=== PATIENT | female | born 1995 | race African-American/Black ===

== ENCOUNTER 2018-05-04 08:51 | Emergency (ER) | payer OTHER ==
[2018-05-04] MEDS ORDERED: SODIUM CHLORIDE 0.9% 1,000 ML IV STA (09:19)
--- NOTE | 2018-05-04 09:23 | ED ---
General Adult HPI - General Chief complaint: Abdominal Pain Stated complaint: Ear pain/side pain Time Seen by Provider: 05/04/18 09:04 Source: patient, RN notes reviewed Mode of arrival: ambulatory Limitations: no limitations - History of Present Illness Initial comments: Patient 22-year-old female presented to the emergency room today with multiple complaints. She admits that this morning she noticed some left ear pain. She also admits that when she was working out skin having some pain in the right side of the abdomen. She states it is sharp pain that she had to stop working out. Patient states felt fine yesterday. She does not that she's had diarrhea off and on over the last week. Patient denies any other complaints or symptoms. Patient denies any recent fever, chills, shortness of breath, chest pain, back pain, abdominal pain, nausea or vomiting, numbness or tingling, dysuria or hematuria, constipation, headaches or visual changes, or any other complaints. - Related Data Previous Rx's Medication Instructions Recorded Amoxicillin 500 mg PO Q8H 10 Days day 05/04/18 Allergies Allergy/AdvReac Type Severity Reaction Status Date / Time No Known Allergies Allergy Verified 05/04/18 10:03 Review of Systems ROS Statement: Those systems with pertinent positive or pertinent negative responses have been documented in the HPI. ROS Other: All systems not noted in ROS Statement are negative. Past Medical History Past Medical History: No Reported History History of Any Multi-Drug Resistant Organisms: None Reported Past Surgical History: Section Past Psychological History: No Psychological Hx Reported Smoking Status: Never smoker Past Alcohol Use History: Occasional Past Drug Use History: None Reported General Exam - General Exam Comments Initial Comments: General: The patient is awake and alert, in no distress, and does not appear acutely ill. Eye: Pupils are equal, round and reactive to light, extra-ocular movements are intact. No nystagmus. There is normal conjunctiva bilaterally. No signs of icterus. Ears, nose, mouth and throat: There are moist mucous membranes and no oral lesions. Right ear clear. Left ear cerumen impaction. Neck: The neck is supple, there is no tenderness or JVD. Cardiovascular: There is a regular rate and rhythm. No murmur, rub or gallop is appreciated. Respiratory: Lungs are clear to auscultation, respirations are non-labored, breath sounds are equal. No wheezes, stridor, rales, or rhonchi. Gastrointestinal: Abdomen soft on palpation. Patient does have mild tenderness on exam left lower quadrant. No rebound tenderness. No guarding. No CVA tenderness. Musculoskeletal: Normal ROM, no tenderness. Strength 5/5. Sensation intact. Pulses equal bilaterally 2+. Neurological: A&O x 3. CN II-XII intact, There are no obvious motor or sensory deficits. Coordination appears grossly intact. Speech is normal. Skin: Skin is warm and dry and no rashes or lesions are noted. Psychiatric: Cooperative, appropriate mood & affect, normal judgment. Limitations: no limitations Course Vital Signs 05/04/18 08:54 Temperature 98.4 F Pulse Rate 80 Respiratory 18 Rate Blood Pressure 118/82 O2 Sat by Pulse 98 Oximetry Medical Decision Making - Lab Data Result diagrams: 05/04/18 09:40 05/04/18 09:40 Lab Results 05/04/18 05/04/18 05/04/18 Range/Units 09:29 09:29 09:40 WBC (3.8-10.6) k/uL RBC (3.80-5.40) m/uL Hgb (11.4-16.0) gm/dL Hct (34.0-46.0) % MCV (80.0-100.0) fL MCH (25.0-35.0) pg MCHC (31.0-37.0) g/dL RDW (11.5-15.5) % Plt Count (150-450) k/uL Neutrophils % % Lymphocytes % % Monocytes % % Eosinophils % % Basophils % % Neutrophils # (1.3-7.7) k/uL Lymphocytes # (1.0-4.8) k/uL Monocytes # (0-1.0) k/uL Eosinophils # (0-0.7) k/uL Basophils # (0-0.2) k/uL Sodium 141 (137-145) mmol/L Potassium 4.2 (3.5-5.1) mmol/L Chloride 103 (98-107) mmol/L Carbon Dioxide 28 (22-30) mmol/L Anion Gap 10 mmol/L BUN 16 (7-17) mg/dL Creatinine 0.70 (0.52-1.04) mg/dL Est GFR (CKD-EPI)AfAm >90 (>60 ml/min/1.73 sqM) Est GFR (CKD-EPI)NonAf >90 (>60 ml/min/1.73 sqM) Glucose 93 (74-99) mg/dL Calcium 9.0 (8.4-10.2) mg/dL Total Bilirubin 0.5 (0.2-1.3) mg/dL AST 17 (14-36) U/L ALT 28 (9-52) U/L Alkaline Phosphatase 34 L (38-126) U/L Total Protein 6.3 (6.3-8.2) g/dL Albumin 4.0 (3.5-5.0) g/dL Amylase 52 (30-110) U/L Lipase 52 (23-300) U/L Urine Color Yellow Urine Appearance Clear (Clear) Urine pH 6.0 (5.0-8.0) Ur Specific [place] 1.024 (1.001-1.035) Urine Protein Trace H (Negative) Urine Glucose (UA) Negative (Negative) Urine Ketones Negative (Negative) Urine Blood Negative (Negative) Urine Nitrite Negative (Negative) Urine Bilirubin Negative (Negative) Urine Urobilinogen <2.0 (<2.0) mg/dL Ur Leukocyte Esterase Moderate H (Negative) Urine RBC 2 (0-5) /hpf Urine WBC 5 (0-5) /hpf Ur Squamous Epith Cells 2 (0-4) /hpf Urine Bacteria Occasional H (None) /hpf Urine Mucus Many H (None) /hpf Urine HCG, Qual Not Detected (Not Detectd) 05/04/18 Range/Units 09:40 WBC 5.8 (3.8-10.6) k/uL RBC 4.41 (3.80-5.40) m/uL Hgb 12.9 (11.4-16.0) gm/dL Hct 39.6 (34.0-46.0) % MCV 89.8 (80.0-100.0) fL MCH 29.2 (25.0-35.0) pg MCHC 32.5 (31.0-37.0) g/dL RDW 12.6 (11.5-15.5) % Plt Count 191 (150-450) k/uL Neutrophils % 61 % Lymphocytes % 33 % Monocytes % 3 % Eosinophils % 1 % Basophils % 0 % Neutrophils # 3.5 (1.3-7.7) k/uL Lymphocytes # 1.9 (1.0-4.8) k/uL Monocytes # 0.2 (0-1.0) k/uL Eosinophils # 0.0 (0-0.7) k/uL Basophils # 0.0 (0-0.2) k/uL Sodium (137-145) mmol/L Potassium (3.5-5.1) mmol/L Chloride (98-107) mmol/L Carbon Dioxide (22-30) mmol/L Anion Gap mmol/L BUN (7-17) mg/dL Creatinine (0.52-1.04) mg/dL Est GFR (CKD-EPI)AfAm (>60 ml/min/1.73 sqM) Est GFR (CKD-EPI)NonAf (>60 ml/min/1.73 sqM) Glucose (74-99) mg/dL Calcium (8.4-10.2) mg/dL Total Bilirubin (0.2-1.3) mg/dL AST (14-36) U/L ALT (9-52) U/L Alkaline Phosphatase (38-126) U/L Total Protein (6.3-8.2) g/dL Albumin (3.5-5.0) g/dL Amylase (30-110) U/L Lipase (23-300) U/L Urine Color Urine Appearance (Clear) Urine pH (5.0-8.0) Ur Specific [place] (1.001-1.035) Urine Protein (Negative) Urine Glucose (UA) (Negative) Urine Ketones (Negative) Urine Blood (Negative) Urine Nitrite (Negative) Urine Bilirubin (Negative) Urine Urobilinogen (<2.0) mg/dL Ur Leukocyte Esterase (Negative) Urine RBC (0-5) /hpf Urine WBC (0-5) /hpf Ur Squamous Epith Cells (0-4) /hpf Urine Bacteria (None) /hpf Urine Mucus (None) /hpf Urine HCG, Qual (Not Detectd) Disposition Clinical Impression: Otitis media, Abdominal pain Disposition: HOME SELF-CARE Condition: Good Instructions: Abdominal Pain (ED) Additional Instructions: Please use medication as discussed. Please follow-up with family doctor in the next 2 days of symptoms have not improved. Please return to emergency room if the symptoms increase or worsen or for any other concerns. Prescriptions: Amoxicillin 500 mg PO Q8H 10 Days day Is patient prescribed a controlled substance at d/c from ED?: No Referrals: None,Stated [Primary Care Provider] - 1-2 days Time of Disposition: 11:05
[2018-05-04 09:43] LABS: Appearance,Urine Clear (Clear); Bacteria,Urine Occasional /hpf; Bilirubin,Urine Negative (Negative); Blood,Urine Negative (Negative); Color,Urine Yellow; Glucose,Urine (UA) Negative (Negative); Ketones,Urine Negative (Negative); Leukocyte Esterase,Urine Moderate (Negative); Mucus,Urine Many /hpf; Nitrite,Urine Negative (Negative); Protein,Urine Trace (Negative); RBC,Urine 2 /hpf (0-5); Specific Gravity,Urine 1.024 (1.001-1.035); Squamous Epithelial Cell,Urine 2 /hpf (0-4); Urobilinogen,Urine <2.0 mg/dL (<2.0); WBC,Urine 5 /hpf (0-5)
[2018-05-04 09:51] LABS: Basophils % (A) 0 %; Eosinophils % (A) 1 %; HCT 39.6 % (34.0-46.0); HGB 12.9 gm/dL (11.4-16.0); Lymphocytes # (A) 1.9 k/uL (1.0-4.8); Lymphocytes % (A) 33 %; MCH 29.2 pg (25.0-35.0); MCHC 32.5 g/dL (31.0-37.0); MCV 89.8 fL (80.0-100.0); Mean Platelet Volume 6.4; Monocytes # (A) 0.2 k/uL (0-1.0); Monocytes % (A) 3 %; Neutrophils # (A) 3.5 k/uL (1.3-7.7); Neutrophils % (A) 61 %; Platelet Count 191 k/uL (150-450); RBC 4.41 m/uL (3.80-5.40); RDW 12.6 % (11.5-15.5); WBC 5.8 k/uL (3.8-10.6)
[2018-05-04 10:04] LABS: ALT 28 U/L (9-52); AST 17 U/L (14-36); Alkaline Phosphatase 34 U/L (38-126); Amylase 52 U/L (30-110); Anion Gap 10 mmol/L; Blood Urea Nitrogen 16 mg/dL (7-17); Carbon Dioxide 28 mmol/L (22-30); Chloride 103 mmol/L (98-107); Glucose 93 mg/dL (74-99); Lipase 52 U/L (23-300); Potassium 4.2 mmol/L (3.5-5.1); Sodium 141 mmol/L (137-145); Total Bilirubin 0.5 mg/dL (0.2-1.3); Total Protein 6.3 g/dL (6.3-8.2)
--- NOTE | 2018-05-04 10:27 | XR ---
EXAMINATION TYPE: XR KUB DATE OF EXAM: 05/04/2018 COMPARISON: NONE INDICATION: Pain TECHNIQUE: Single view abdomen upright view FINDINGS: Nonspecific gas is present. Psoas margins are normal. No organomegaly is present. Navel piercing is in the midline. IMPRESSION: 1. Unremarkable Abdomen
[2018-05-04 11:20] VITALS: BP 111/59; PULSE 60; RESP 16; TEMP 97.6
== END 2018-05-04 11:19 | disposition home or self-care (01) ==
LOC: EC 08:51
DX: H66.92 Otitis media, unspecified, left ear (principal); R10.9 Unspecified abdominal pain; H61.22 Impacted cerumen, left ear
CPT/HCPCS: 36415; 74018; 80053; 81001; 81025; 82150; 83690; 85025; 96360; 99284

== ENCOUNTER 2018-05-07 13:50 | Emergency (ER) | payer OTHER ==
[2018-05-07 13:56] VITALS: RESP 18
--- NOTE | 2018-05-07 15:30 | ED ---
General Adult HPI - General Chief complaint: ENT Stated complaint: ear pain-revisit Time Seen by Provider: 05/07/18 14:17 Source: patient, RN notes reviewed Mode of arrival: ambulatory Limitations: no limitations - History of Present Illness Initial comments: 22-year-old female process to the emergency department for a chief complaint of left ureter pain 5 days. Patient was seen here 4 days ago and treated with amoxicillin. Patient states that the amoxicillin is not helping. Patient has not taken anything for pain. Patient denies neck stiffness, cough, congestion. Patient has no other complaints at this time including shortness of breath, chest pain, abdominal pain, nausea or vomiting, headache, or visual changes. - Related Data Previous Rx's Medication Instructions Recorded Amoxicillin 500 mg PO Q8H 10 Days day 05/04/18 Amoxicillin/Potassium Clav 1 tab PO Q12HR #20 tab 05/07/18 [Augmentin 875-125 Tablet] Allergies Allergy/AdvReac Type Severity Reaction Status Date / Time No Known Allergies Allergy Verified 05/07/18 14:21 Review of Systems ROS Statement: Those systems with pertinent positive or pertinent negative responses have been documented in the HPI. ROS Other: All systems not noted in ROS Statement are negative. Past Medical History Past Medical History: No Reported History History of Any Multi-Drug Resistant Organisms: None Reported Past Surgical History: Section Past Psychological History: No Psychological Hx Reported Smoking Status: Never smoker Past Alcohol Use History: Occasional Past Drug Use History: None Reported General Exam Limitations: no limitations General appearance: alert, in no apparent distress Head exam: Present: atraumatic, normocephalic, normal inspection Eye exam: Present: normal appearance ENT exam: Present: normal oropharynx, mucous membranes moist, normal external ear exam (No pain in the tragus or pinna. No pain in the mastoid process.). Absent: TM's normal bilaterally (Left tympanic membrane appears erythematous) Neck exam: Present: normal inspection, full ROM. Absent: tenderness, meningismus, lymphadenopathy Respiratory exam: Present: normal lung sounds bilaterally. Absent: respiratory distress, wheezes, rales, rhonchi, stridor Cardiovascular Exam: Present: regular rate, normal rhythm, normal heart sounds. Absent: systolic murmur, diastolic murmur, rubs, gallop, clicks Course Vital Signs 05/07/18 13:54 Temperature 97.9 F Pulse Rate 88 Respiratory 18 Rate Blood Pressure 133/87 O2 Sat by Pulse 99 Oximetry Medical Decision Making - Medical Decision Making 22-year-old female presents to the emergency department for a chief complaint of left ear pain 5 days. Patient was treated here with amoxicillin 4 days ago but is still having pain despite taking the amoxicillin. Patient has not tried anything else for pain. Patient is afebrile in the emergency department. On exam patient does have an erythematous left tympanic membrane. Lungs are clear. Patient does not appear congested. Throat is nonerythematous. Patient will stop the amoxicillin and be treated with Augmentin instead. She will monitor for any worsening symptoms including fever or increased pain and return if these occur. She will follow up with primary care in 1-2 days. She can also take Motrin and Tylenol for pain as discussed. Disposition Clinical Impression: Otitis media Disposition: HOME SELF-CARE Condition: Good Instructions: Otitis Media (ED) Additional Instructions: Please take Augmentin as directed. Stop taking Amoxicillin. Please monitor for any worsening symptoms or fever and return if these occur. Follow-up with primary care in 1-2 days. Prescriptions: Amoxicillin/Potassium Clav [Augmentin 875-125 Tablet] 1 tab PO Q12HR #20 tab Is patient prescribed a controlled substance at d/c from ED?: No Referrals: Nixon Buck MD [STAFF PHYSICIAN] - 1-2 days Time of Disposition: 15:30
[2018-05-07 15:35] VITALS: BP 118/67; PULSE 72; TEMP 98.2
== END 2018-05-07 15:39 | disposition home or self-care (01) ==
LOC: EC 13:50
DX: H66.92 Otitis media, unspecified, left ear (principal)
CPT/HCPCS: 99282

== ENCOUNTER 2018-11-21 07:56 | Emergency (ER) | payer OTHER ==
[2018-11-21] MEDS ORDERED: ONDANSETRON 4 MG/2 ML VIAL IVP STA (09:12)
[2018-11-21] MEDS ORDERED: SODIUM CHLORIDE 0.9% 1,000 ML IV STA (09:12)
[2018-11-21] MEDS ORDERED: KETOROLAC 30 MG/ML 1 ML VIAL IVP STA (09:12)
--- NOTE | 2018-11-21 09:14 | ED ---
Abdominal Pain HPI - General Chief Complaint: Abdominal Pain Stated Complaint: Abd.pain Time Seen by Provider: 11/21/18 09:04 Source: patient, RN notes reviewed, old records reviewed Mode of arrival: ambulatory Limitations: no limitations - History of Present Illness Initial Comments: Patient is a 23-year-old female who presents emergency department today with chief complaint of nausea, side abdominal pain. Patient reports her symptoms started 3 hours ago. She reports that the symptoms woke her up from her sleep. Patient states she was going to work but the pain is more intense and severe so she felt she had to be seen. She denies any changes in urination or bowel habits. She has had no vomiting episodes. She states that she had a bowel movement yesterday, does not feel like she needs to have a bowel movement at this time. Patient states that she has had a before. She denies chance of at this time. Patient states that she has no vaginal bleeding or discharge.Patient denies any recent fever, chills, shortness of breath, chest pain, back pain, vomiting, numbness or tingling, dysuria or hematuria, constipation or diarrhea, headaches or visual changes, or any other current symptoms - Related Data Previous Rx's Medication Instructions Recorded Famotidine [Pepcid] 20 mg PO BID #20 tablet 11/21/18 Nitrofurantoin Monohyd/M-Cryst 100 mg PO Q12HR #14 cap 11/21/18 [Macrobid] Ondansetron Odt [Zofran Odt] 4 mg PO Q8HR PRN #12 tab 11/21/18 Allergies Allergy/AdvReac Type Severity Reaction Status Date / Time No Known Allergies Allergy Verified 11/21/18 09:37 Review of Systems ROS Statement: Those systems with pertinent positive or pertinent negative responses have been documented in the HPI. ROS Other: All systems not noted in ROS Statement are negative. Past Medical History Past Medical History: No Reported History History of Any Multi-Drug Resistant Organisms: None Reported Past Surgical History: Section Past Psychological History: No Psychological Hx Reported Smoking Status: Never smoker Past Alcohol Use History: Occasional Past Drug Use History: None Reported General Exam - General Exam Comments Initial Comments: 23-year-old female. Alert and oriented. No distress. Limitations: no limitations General appearance: alert, in no apparent distress Head exam: Present: atraumatic, normocephalic, normal inspection Eye exam: Present: normal appearance, PERRL, EOMI. Absent: scleral icterus, conjunctival injection, periorbital swelling ENT exam: Present: normal exam, mucous membranes moist Neck exam: Present: normal inspection. Absent: tenderness, meningismus, lymphadenopathy Respiratory exam: Present: normal lung sounds bilaterally. Absent: respiratory distress, wheezes, rales, rhonchi, stridor Cardiovascular Exam: Present: regular rate, normal rhythm, normal heart sounds. Absent: systolic murmur, diastolic murmur, rubs, gallop, clicks GI/Abdominal exam: Present: soft, normal bowel sounds. Absent: distended, tenderness, guarding, rebound, rigid Extremities exam: Present: normal inspection, full ROM, normal capillary refill. Absent: tenderness, pedal edema, joint swelling, calf tenderness Back exam: Present: normal inspection Neurological exam: Present: alert, oriented X3, CN II-XII intact Psychiatric exam: Present: normal affect, normal mood Skin exam: Present: warm, dry, intact, normal color. Absent: rash Course Vital Signs 11/21/18 08:00 Temperature 98.0 F Pulse Rate 84 Respiratory 20 Rate Blood Pressure 121/71 O2 Sat by Pulse 100 Oximetry - Reevaluation(s) Reevaluation #1: 11/21/18 11:52 Patient is feeling better at this time with GI cocktail and fluids. Informed of lab results and UTI. Medical Decision Making - Medical Decision Making Patient is 23-year-old female presents raise worsens acutely left-sided abdominal pain. Patient has had no fevers or chills Patient denies any other significant complaints. Patient started on IV fluids and lab work obtained. Patient's are reviewed and negative for any acute process. Urinalysis does show signs of infection with 42 with blood cells. Urine culture obtained. We' ll put the Patient on antibiotics to cover for UTI. HCG levels negative. KUB shows nonspecific bowel gas pattern. Stools throughout. Patient has had no vomiting. I discussed Patient likely suffered from some mild enteritis and gastritis for the left-sided jaw pain as well as the UTI. We'll put the Patient on Pepcid and Zofran and Macrobid. Advised to follow-up with PCP. All questions answered. - Lab Data Result diagrams: 11/21/18 10:30 11/21/18 10:30 Lab Results 11/21/18 11/21/18 11/21/18 Range/Units 10:30 10:30 11:10 WBC 5.3 (3.8-10.6) k/uL RBC 4.33 (3.80-5.40) m/uL Hgb 12.4 (11.4-16.0) gm/dL Hct 38.1 (34.0-46.0) % MCV 87.9 (80.0-100.0) fL MCH 28.7 (25.0-35.0) pg MCHC 32.6 (31.0-37.0) g/dL RDW 12.7 (11.5-15.5) % Plt Count 210 (150-450) k/uL Neutrophils % 62 % Lymphocytes % 30 % Monocytes % 4 % Eosinophils % 1 % Basophils % 0 % Neutrophils # 3.3 (1.3-7.7) k/uL Lymphocytes # 1.6 (1.0-4.8) k/uL Monocytes # 0.2 (0-1.0) k/uL Eosinophils # 0.1 (0-0.7) k/uL Basophils # 0.0 (0-0.2) k/uL Sodium 139 (137-145) mmol/L Potassium 4.6 (3.5-5.1) mmol/L Chloride 106 (98-107) mmol/L Carbon Dioxide 25 (22-30) mmol/L Anion Gap 8 mmol/L BUN 15 (7-17) mg/dL Creatinine 0.68 (0.52-1.04) mg/dL Est GFR (CKD-EPI)AfAm >90 (>60 ml/min/1.73 sqM) Est GFR (CKD-EPI)NonAf >90 (>60 ml/min/1.73 sqM) Glucose 93 (74-99) mg/dL Calcium 9.3 (8.4-10.2) mg/dL Total Bilirubin 0.4 (0.2-1.3) mg/dL AST 16 (14-36) U/L ALT 14 (9-52) U/L Alkaline Phosphatase 39 (38-126) U/L Total Protein 6.9 (6.3-8.2) g/dL Albumin 4.0 (3.5-5.0) g/dL Amylase 52 (30-110) U/L Lipase 57 (23-300) U/L Urine Color Urine Appearance (Clear) Urine pH (5.0-8.0) Ur Specific [place] (1.001-1.035) Urine Protein (Negative) Urine Glucose (UA) (Negative) Urine Ketones (Negative) Urine Blood (Negative) Urine Nitrite (Negative) Urine Bilirubin (Negative) Urine Urobilinogen (<2.0) mg/dL Ur Leukocyte Esterase (Negative) Urine RBC (0-5) /hpf Urine WBC (0-5) /hpf Ur Squamous Epith Cells (0-4) /hpf Urine Bacteria (None) /hpf Urine Mucus (None) /hpf Urine HCG, Qual Not Detected (Not Detectd) 11/21/18 Range/Units 11:10 WBC (3.8-10.6) k/uL RBC (3.80-5.40) m/uL Hgb (11.4-16.0) gm/dL Hct (34.0-46.0) % MCV (80.0-100.0) fL MCH (25.0-35.0) pg MCHC (31.0-37.0) g/dL RDW (11.5-15.5) % Plt Count (150-450) k/uL Neutrophils % % Lymphocytes % % Monocytes % % Eosinophils % % Basophils % % Neutrophils # (1.3-7.7) k/uL Lymphocytes # (1.0-4.8) k/uL Monocytes # (0-1.0) k/uL Eosinophils # (0-0.7) k/uL Basophils # (0-0.2) k/uL Sodium (137-145) mmol/L Potassium (3.5-5.1) mmol/L Chloride (98-107) mmol/L Carbon Dioxide (22-30) mmol/L Anion Gap mmol/L BUN (7-17) mg/dL Creatinine (0.52-1.04) mg/dL Est GFR (CKD-EPI)AfAm (>60 ml/min/1.73 sqM) Est GFR (CKD-EPI)NonAf (>60 ml/min/1.73 sqM) Glucose (74-99) mg/dL Calcium (8.4-10.2) mg/dL Total Bilirubin (0.2-1.3) mg/dL AST (14-36) U/L ALT (9-52) U/L Alkaline Phosphatase (38-126) U/L Total Protein (6.3-8.2) g/dL Albumin (3.5-5.0) g/dL Amylase (30-110) U/L Lipase (23-300) U/L Urine Color Yellow Urine Appearance Clear (Clear) Urine pH 6.5 (5.0-8.0) Ur Specific [place] 1.018 (1.001-1.035) Urine Protein Negative (Negative) Urine Glucose (UA) Negative (Negative) Urine Ketones Negative (Negative) Urine Blood Negative (Negative) Urine Nitrite Negative (Negative) Urine Bilirubin Negative (Negative) Urine Urobilinogen <2.0 (<2.0) mg/dL Ur Leukocyte Esterase Moderate H (Negative) Urine RBC <1 (0-5) /hpf Urine WBC 42 H (0-5) /hpf Ur Squamous Epith Cells 5 H (0-4) /hpf Urine Bacteria Few H (None) /hpf Urine Mucus Few H (None) /hpf Urine HCG, Qual (Not Detectd) Disposition Clinical Impression: UTI (urinary tract infection), Gastritis Disposition: HOME SELF-CARE Condition: Good Instructions: Urinary Tract Infection in Women (DC) Additional Instructions: Patient advised to rest, take medication as prescribed. Follow-up with primary care physician. Return to emergency department if any alarming signs or symptoms occur. Prescriptions: Famotidine [Pepcid] 20 mg PO BID #20 tablet Nitrofurantoin Monohyd/M-Cryst [Macrobid] 100 mg PO Q12HR #14 cap Ondansetron Odt [Zofran Odt] 4 mg PO Q8HR PRN #12 tab PRN Reason: Nausea Is patient prescribed a controlled substance at d/c from ED?: No Referrals: None,Stated [Primary Care Provider] - 1-2 days Time of Disposition: 11:54
[2018-11-21] MEDS ORDERED: PANTOPRAZOLE 40 MG/10 ML VIAL IVP STA (09:46)
[2018-11-21] MEDS ORDERED: MAG HYDROX/AL HYDROX/SIMETH 30 ML, HYOSCYAMINE ELIXIR 10 ML, CIMETIDINE HCL 300 MG, LID... PO STA ×4 (09:46)
[2018-11-21 11:08] LABS: Basophils % (A) 0 %; Eosinophils # (A) 0.1 k/uL (0-0.7); Eosinophils % (A) 1 %; HCT 38.1 % (34.0-46.0); HGB 12.4 gm/dL (11.4-16.0); Lymphocytes # (A) 1.6 k/uL (1.0-4.8); Lymphocytes % (A) 30 %; MCH 28.7 pg (25.0-35.0); MCHC 32.6 g/dL (31.0-37.0); MCV 87.9 fL (80.0-100.0); Mean Platelet Volume 6.5; Monocytes # (A) 0.2 k/uL (0-1.0); Monocytes % (A) 4 %; Neutrophils # (A) 3.3 k/uL (1.3-7.7); Neutrophils % (A) 62 %; Platelet Count 210 k/uL (150-450); RBC 4.33 m/uL (3.80-5.40); RDW 12.7 % (11.5-15.5); WBC 5.3 k/uL (3.8-10.6)
[2018-11-21 11:09] LABS: ALT 14 U/L (9-52); AST 16 U/L (14-36); Alkaline Phosphatase 39 U/L (38-126); Amylase 52 U/L (30-110); Anion Gap 8 mmol/L; Blood Urea Nitrogen 15 mg/dL (7-17); Calcium 9.3 mg/dL (8.4-10.2); Carbon Dioxide 25 mmol/L (22-30); Chloride 106 mmol/L (98-107); Glucose 93 mg/dL (74-99); Lipase 57 U/L (23-300); Potassium 4.6 mmol/L (3.5-5.1); Sodium 139 mmol/L (137-145); Total Bilirubin 0.4 mg/dL (0.2-1.3); Total Protein 6.9 g/dL (6.3-8.2)
[2018-11-21 11:21] LABS: Appearance,Urine Clear (Clear); Bacteria,Urine Few /hpf; Bilirubin,Urine Negative (Negative); Blood,Urine Negative (Negative); Color,Urine Yellow; Glucose,Urine (UA) Negative (Negative); Ketones,Urine Negative (Negative); Leukocyte Esterase,Urine Moderate (Negative); Mucus,Urine Few /hpf; Nitrite,Urine Negative (Negative); PH, Urine 6.5 (5.0-8.0); Protein,Urine Negative (Negative); RBC,Urine <1 /hpf (0-5); Specific Gravity,Urine 1.018 (1.001-1.035); Squamous Epithelial Cell,Urine 5 /hpf (0-4); Urobilinogen,Urine <2.0 mg/dL (<2.0); WBC,Urine 42 /hpf (0-5)
[2018-11-21 12:09] VITALS: BP 102/56; PULSE 65; RESP 18; TEMP 98.3
--- NOTE | 2018-11-21 12:10 | XR ---
EXAMINATION TYPE: XR KUB DATE OF EXAM: 11/21/2018 COMPARISON: 05/04/2018 INDICATION: Abdomen pain TECHNIQUE: Single view abdomen upright view FINDINGS: There is a normal bowel gas pattern. No suspicious air-fluid levels or differential air-fluid levels are present. There is nonspecific small bowel gas present. Psoas margins are normal. No organomegaly is present. IMPRESSION: 1. Nonspecific abdomen
== END 2018-11-21 12:10 | disposition home or self-care (01) ==
LOC: SUPCPDRO 07:56 → EC 07:56
DX: K29.70 Gastritis, unspecified, without bleeding (principal); N39.0 Urinary tract infection, site not specified
CPT/HCPCS: 99284; 96374; 96375 ×2; 96361 ×2; 36415; 80053; 82150; 83690; 85025; 81001; 81025; 87086; 74018; J2405; J1885; C9113

== ENCOUNTER 2019-04-22 18:53 | Emergency (ER) | payer OTHER ==
[2019-04-22 19:55] VITALS: BP 127/70; PULSE 69; RESP 20; TEMP 99.4
[2019-04-22 22:08] LABS: Appearance,Urine Clear (Clear); Bilirubin,Urine Negative (Negative); Blood,Urine Negative (Negative); Color,Urine Yellow; Glucose,Urine (UA) Negative (Negative); Ketones,Urine Negative (Negative); Leukocyte Esterase,Urine Moderate (Negative); Mucus,Urine Many /hpf; Nitrite,Urine Negative (Negative); Protein,Urine Negative (Negative); RBC,Urine 1 /hpf (0-5); Specific Gravity,Urine 1.028 (1.001-1.035); Squamous Epithelial Cell,Urine 6 /hpf (0-4); WBC,Urine 6 /hpf (0-5)
[2019-04-22] MEDS ORDERED: KETOROLAC 30 MG/ML 1 ML VIAL IM STA (22:21)
--- NOTE | 2019-04-22 22:22 | ED ---
General Adult HPI - General Chief complaint: Abdominal Pain Stated complaint: chest & abdominal pain Time Seen by Provider: 04/22/19 20:53 Source: patient Mode of arrival: ambulatory Limitations: no limitations - History of Present Illness Initial comments: 23-year-old female patient presents to emergency department today for evaluation of bilateral breast pain and tenderness. Patient states she's also been having some intermittent lower abdominal pain and discomfort. Patient states this started several days ago but she finally had time today to come get checked out. Patient denies any redness, swelling, or drainage from the nipples. Patient is unsure she may be . Patient states that she has been having an intermittent vague pain to the suprapubic region. Denies any radiation of the pain through to her back when the pain is present. She denies any pain at this time. She denies any abnormal vaginal bleeding or discharge. Denies any concern for sexually transmitted infections. Denies any hematuria, dysuria, urinary frequency, urinary urgency. She denies fever or chills. Patient denies any recent rash, shortness breath, chest pain, nausea, vomiting, diarrhea, constipation, back pain, numbness, tingling, dizziness, weakness, headache, visual changes, or any other complaints. - Related Data Previous Rx's Medication Instructions Recorded Ibuprofen [Motrin] 600 mg PO Q8HR PRN #30 tab 04/22/19 Allergies Allergy/AdvReac Type Severity Reaction Status Date / Time No Known Allergies Allergy Verified 04/22/19 21:07 Review of Systems ROS Statement: Those systems with pertinent positive or pertinent negative responses have been documented in the HPI. ROS Other: All systems not noted in ROS Statement are negative. Past Medical History Past Medical History: No Reported History History of Any Multi-Drug Resistant Organisms: None Reported Past Surgical History: Section Past Psychological History: No Psychological Hx Reported Smoking Status: Never smoker Past Alcohol Use History: None Reported Past Drug Use History: None Reported General Exam Limitations: no limitations General appearance: alert, in no apparent distress, other (Physical well- developed, well-nourished adult female patient in no acute distress. Vital signs upon presentation are temperature 99.4F, pulse 69, respirations 20, blood pressure 127/70, pulse ox 98% on room air.) Eye exam: Present: normal appearance, PERRL, EOMI. Absent: scleral icterus, conjunctival injection, periorbital swelling ENT exam: Present: normal exam, normal oropharynx, mucous membranes moist Respiratory exam: Present: normal lung sounds bilaterally. Absent: respiratory distress, wheezes, rales, rhonchi, stridor Cardiovascular Exam: Present: regular rate, normal rhythm, normal heart sounds. Absent: systolic murmur, diastolic murmur, rubs, gallop, clicks GI/Abdominal exam: Present: soft, normal bowel sounds. Absent: distended, tenderness, guarding, rebound, rigid Back exam: Present: normal inspection. Absent: CVA tenderness (R), CVA tenderness (L) Neurological exam: Present: alert, oriented X3, CN II-XII intact Psychiatric exam: Present: normal affect, normal mood Skin exam: Present: warm, dry, intact, normal color. Absent: rash Course Vital Signs 04/22/19 19:52 Temperature 99.4 F Pulse Rate 69 Respiratory 20 Rate Blood Pressure 127/70 O2 Sat by Pulse 98 Oximetry Medical Decision Making - Medical Decision Making 23-year-old female patient presents to the emergency department today for evaluation of bilateral breast tenderness and intermittent suprapubic abdominal pain. Physical examination did reveal bilateral breast tenderness. No redness. No swelling, no drainage from the nipples. Abdomen was soft and nontender. Patient denies any current abdominal pain. Urinalysis was negative for any evidence of infection. HCG was negative. Patient denies any concern for sexually transmitted infections. Denies any abnormal vaginal bleeding or discharge. We did discuss hormonal shifts as a cause for her breast tenderness. 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 Return parameters were discussed in detail. She verbalizes understanding and ag rashaad with this plan. - Lab Data Lab Results 04/22/19 04/22/19 Range/Units 21:30 21:30 Urine Color Yellow Urine Appearance Clear (Clear) Urine pH 6.0 (5.0-8.0) Ur Specific [place] 1.028 (1.001-1.035) Urine Protein Negative (Negative) Urine Glucose (UA) Negative (Negative) Urine Ketones Negative (Negative) Urine Blood Negative (Negative) Urine Nitrite Negative (Negative) Urine Bilirubin Negative (Negative) Urine Urobilinogen 2.0 (<2.0) mg/dL Ur Leukocyte Esterase Moderate H (Negative) Urine RBC 1 (0-5) /hpf Urine WBC 6 H (0-5) /hpf Ur Squamous Epith Cells 6 H (0-4) /hpf Urine Mucus Many H (None) /hpf Urine HCG, Qual Not Detected (Not Detectd) Disposition Clinical Impression: Breast pain, Abdominal pain Disposition: HOME SELF-CARE Condition: Good Instructions (If sedation given, give patient instructions): Abdominal Pain (ED) Additional Instructions: Increase fluids. Take medications as directed. Follow-up with your primary care physician or your fat pressroom worker for recheck as soon as possible. Return to the emergency department immediately for any new, worsening, or concerning symptoms. Prescriptions: Ibuprofen [Motrin] 600 mg PO Q8HR PRN #30 tab PRN Reason: Pain Is patient prescribed a controlled substance at d/c from ED?: No Referrals: Albin Fabian DO [Primary Care Provider] - 1-2 days Time of Disposition: 22:22
== END 2019-04-22 22:51 | disposition home or self-care (01) ==
LOC: EC 18:53
DX: R10.30 Lower abdominal pain, unspecified (principal); N64.4 Mastodynia; Z32.02 Encounter for pregnancy test, result negative
CPT/HCPCS: 81001; 81025; 87086; 99284; 96372; J1885

== ENCOUNTER 2019-06-21 17:59 | Emergency (ER) | payer OTHER ==
[2019-06-21 18:10] VITALS: BP 108/74; PULSE 107; RESP 18; TEMP 98.8
[2019-06-21 18:26] LABS: Appearance,Urine Clear (Clear); Bilirubin,Urine Negative (Negative); Blood,Urine Negative (Negative); Color,Urine Yellow; Glucose,Urine (UA) Negative (Negative); Ketones,Urine 1+ (Negative); Leukocyte Esterase,Urine Negative (Negative); Nitrite,Urine Negative (Negative); Protein,Urine Trace (Negative); Specific Gravity,Urine 1.028 (1.001-1.035)
[2019-06-21] MEDS ORDERED: AZITHROMYCIN 500 MG TAB PO STA (19:30)
[2019-06-21] MEDS ORDERED: cefTRIAXone 250 MG VIAL IM STA (19:30)
--- NOTE | 2019-06-21 19:51 | ED ---
General Adult HPI - General Chief complaint: Urogenital Stated complaint: poss UTI Time Seen by Provider: 06/21/19 18:10 Source: patient, RN notes reviewed Mode of arrival: ambulatory Limitations: no limitations - History of Present Illness Initial comments: 23-year-old female without any significant past medical history presents to the emergency department for a chief complaint of burning with urination. Patient states she has a burning when she urinates but also when she is not urinating. States has been ongoing for about 2 days. Patient denies fevers or chills. Denies any back pain. Denies any abdominal pain. Denies any vaginal discharge. Does admit to a new sexual partner in the past few weeks.Patient has no other complaints at this time including shortness of breath, chest pain, abdominal pain, nausea or vomiting, headache, or visual changes. - Related Data Home Medications Medication Instructions Recorded Confirmed Azithromycin [Zithromax Z-pack] See Taper PO DIRECTED 06/21/19 06/21/19 methylPREDNISolone Dose Pack See Taper PO DIRECTED 06/21/19 06/21/19 [Medrol Dose Pack] Allergies Allergy/AdvReac Type Severity Reaction Status Date / Time No Known Allergies Allergy Verified 06/21/19 18:19 Review of Systems ROS Statement: Those systems with pertinent positive or pertinent negative responses have been documented in the HPI. ROS Other: All systems not noted in ROS Statement are negative. Past Medical History Past Medical History: No Reported History History of Any Multi-Drug Resistant Organisms: None Reported Past Surgical History: Section Past Psychological History: No Psychological Hx Reported Smoking Status: Never smoker Past Alcohol Use History: Occasional Past Drug Use History: None Reported General Exam Limitations: no limitations General appearance: alert, in no apparent distress Head exam: Present: atraumatic, normocephalic, normal inspection Eye exam: Present: normal appearance, PERRL, EOMI. Absent: scleral icterus, conjunctival injection, periorbital swelling ENT exam: Present: normal exam, mucous membranes moist Neck exam: Present: normal inspection, full ROM. Absent: tenderness, meningismus, lymphadenopathy Respiratory exam: Present: normal lung sounds bilaterally. Absent: respiratory distress, wheezes, rales, rhonchi, stridor Cardiovascular Exam: Present: regular rate, normal rhythm, normal heart sounds. Absent: systolic murmur, diastolic murmur, rubs, gallop, clicks GI/Abdominal exam: Present: soft, normal bowel sounds. Absent: distended, tenderness (No tenderness whatsoever, no suprapubic tenderness), guarding, rebound, rigid External exam: Present: normal external exam. Absent: erythema, swelling, lesions, lacerations, ecchymosis Speculum exam: Present: cervical discharge (Cervical discharge noted). Absent: erythema, vaginal discharge, vaginal bleeding, foreign body, tissue, laceration By manual exam: Present: normal by manual exam. Absent: cervical motion tenderness (No cervical motion tenderness, negative chandelier sign), adnexal tenderness, adnexal mass, uterine enlargement, uterine tenderness Neurological exam: Present: alert, oriented X3, CN II-XII intact Psychiatric exam: Present: normal affect, normal mood Course Vital Signs 06/21/19 18:09 Temperature 98.8 F Pulse Rate 107 H Respiratory 18 Rate Blood Pressure 108/74 O2 Sat by Pulse 97 Oximetry Medical Decision Making - Medical Decision Making 23-year-old female presents to the emergency department for a chief complaint of burning with urination. Patient states this has been ongoing since yesterday. Patient also states she has at baseline burning when she is not urinating which she feels like is on the external genitals. Denies fevers or chills. Denies an y back pain. Does admit to a new sexual partner in the past couple weeks. Denies any chance of . On exam patient has no abdominal tenderness whatsoever. She is well-appearing. Urine was negative for infection. Therefore pelvic exam was performed which showed cervical discharge. Trichomonas negative. Discussed empiric treatment. Patient prefers to have treatment at this time rather than wait for culture results. I did discuss following up for culture results as well and following up with primary care. Patient will return here she has any worsening symptoms. - Lab Data Lab Results 06/21/19 06/21/19 06/21/19 Range/Units 18:07 18:07 18:53 Urine Color Yellow Urine Appearance Clear (Clear) Urine pH 6.0 (5.0-8.0) Ur Specific [place] 1.028 (1.001-1.035) Urine Protein Trace H (Negative) Urine Glucose (UA) Negative (Negative) Urine Ketones 1+ H (Negative) Urine Blood Negative (Negative) Urine Nitrite Negative (Negative) Urine Bilirubin Negative (Negative) Urine Urobilinogen 2.0 (<2.0) mg/dL Ur Leukocyte Esterase Negative (Negative) Urine HCG, Qual Not Detected (Not Detectd) Trichomonas Ag (Rapid) Negative (Negative) Disposition Clinical Impression: Cervicitis Disposition: HOME SELF-CARE Condition: Good Instructions (If sedation given, give patient instructions): Cervicitis (ED) Additional Instructions: Please follow up on culture results in 2 days. If you have any worsening symptoms be sure to return to the emergency department. Otherwise follow-up with primary care in 1-2 days. Is patient prescribed a controlled substance at d/c from ED?: No Referrals: Albin Fabian DO [Primary Care Provider] - 1-2 days Time of Disposition: 19:48
[2019-06-22 16:11] LABS: C. trachomatis,PCR Negative (Neg,Equiv); Chlamydia trachomatis Source Vagina; N. gonorrhoeae,PCR Negative (Neg,Equiv); Neisseria Source Vagina
== END 2019-06-21 19:55 | disposition home or self-care (01) ==
LOC: EC 17:59
DX: N72 Inflammatory disease of cervix uteri (principal); Z79.899 Other long term (current) drug therapy
CPT/HCPCS: 81003; 81025; 87808; 87491; 87591; 99283; 96372; J0696; 87086

== ENCOUNTER 2019-06-30 17:39 | Emergency (ER) | payer OTHER ==
[2019-06-30 17:45] VITALS: BP 125/86; PULSE 73; RESP 18; TEMP 98.1
--- NOTE | 2019-06-30 18:03 | ED ---
Female Urogenital HPI - General Chief complaint: Urogenital Stated complaint: wants STD check Time Seen by Provider: 06/30/19 17:46 Source: patient Mode of arrival: ambulatory Limitations: no limitations - History of Present Illness Initial comments: 23-year-old female presented for chief complaint of STD check. Patient states that earlier she had been with was recently diagnosed with herpes. Concerns was exposed. She states she does not have outbreak. Patient states that she did cut herself shaving and she is sure that she states that she looked up the lesions online and states he does not look similar in any way. Patient states she has a small amount of vaginal discharge for recently treated prophylactically for STDs. Patient denies any pain with sex. Denies any abnormal orders. Denies any abdominal pain denies parents appear to remaining review of systems negative. Upon arrival patient appears well signs of acute distress. Last Menstrual Period: 06/01/19 - Related Data Home Medications Medication Instructions Recorded Confirmed Azithromycin [Zithromax Z-pack] See Taper PO DIRECTED 06/21/19 06/21/19 methylPREDNISolone Dose Pack See Taper PO DIRECTED 06/21/19 06/21/19 [Medrol Dose Pack] Allergies Allergy/AdvReac Type Severity Reaction Status Date / Time No Known Allergies Allergy Verified 06/30/19 17:45 Review of Systems ROS Statement: Those systems with pertinent positive or pertinent negative responses have been documented in the HPI. ROS Other: All systems not noted in ROS Statement are negative. Past Medical History Past Medical History: No Reported History History of Any Multi-Drug Resistant Organisms: None Reported Past Surgical History: Section Past Psychological History: No Psychological Hx Reported Smoking Status: Never smoker Past Alcohol Use History: Occasional Past Drug Use History: None Reported General Exam - General Exam Comments Initial Comments: General: The patient is awake and alert, in no distress, and does not appear acutely ill. Eye: Pupils are equal, round and reactive to light, extra-ocular movements are intact. No nystagmus. There is normal conjunctiva bilaterally. No signs of icterus. Cardiovascular: There is a regular rate and rhythm. No murmur, rub or gallop is appreciated. Respiratory: Lungs are clear to auscultation, respirations are non-labored, breath sounds are equal. No wheezes, stridor, rales, or rhonchi. Gastrointestinal: Soft, non-distended, non-tender abdomen without masses or organomegaly noted. There is no rebound or guarding present. No CVA tenderness. Bowel sounds are unremarkable. Pelvic there is a small abrasion of the right labia majora. It does not appear vesicular erythematous. Not tender to touch. HEENT amount of discharge in the vaginal vault no odor. No cervical motion tenderness. Musculoskeletal: Normal ROM, no tenderness. Strength 5/5. Sensation intact. Pulses equal bilaterally 2+. Neurological: A&O x 3. CN II-XII intact, There are no obvious motor or sensory deficits. Coordination appears grossly intact. Speech is normal. Skin: Skin is warm and dry and no rashes or lesions are noted. Psychiatric: Cooperative, appropriate mood & affect, normal judgment. Limitations: no limitations Course Vital Signs 06/30/19 17:42 Temperature 98.1 F Pulse Rate 73 Respiratory 18 Rate Blood Pressure 125/86 O2 Sat by Pulse 99 Oximetry Medical Decision Making - Medical Decision Making 23-year-old female presenting for possible STD exposure. Patient has an area on the vagina does not look like herpes simplex however area was tested given patient's exposure. Trichomonas negative. Vaginal cultures pending heart patient recently treated states she has not been sexually active since. Does not on prophylactic treatment today patient is no abdominal pain no cervical motion tenderness. Appears well afebrile. Patient discharged appearing well - Lab Data Lab Results 06/30/19 Range/Units Unknown Trichomonas Ag (Rapid) Negative (Negative) Disposition Clinical Impression: Exposure to STD Disposition: HOME SELF-CARE Condition: Good Instructions (If sedation given, give patient instructions): Genital Herpes Simplex (ED) Additional Instructions: Please use medication as discussed. Please follow-up with family doctor in the next 2 days, establish care with an OBGYN. Please return to emergency room if the symptoms increase or worsen or for any other concerns. Is patient prescribed a controlled substance at d/c from ED?: No Referrals: Albin Fabian DO [Primary Care Provider] - 1-2 days Time of Disposition: 18:36
[2019-07-01 13:37] LABS: C. trachomatis,PCR Negative (Neg,Equiv); Chlamydia trachomatis Source Vagina
[2019-07-01 13:42] LABS: N. gonorrhoeae,PCR Negative (Neg,Equiv); Neisseria Source Vagina
== END 2019-06-30 18:50 | disposition home or self-care (01) ==
LOC: EC 17:39
DX: Z20.2 Contact with and (suspected) exposure to infections with a predominantly sexual mode of transmission (principal); S30.814A Abrasion of vagina and vulva, initial encounter; N89.8 Other specified noninflammatory disorders of vagina; Z79.52 Long term (current) use of systemic steroids; W45.8XXA Other foreign body or object entering through skin, initial encounter
CPT/HCPCS: 87070; 87205; 87491; 87529; 87591; 87808; 99283

== ENCOUNTER 2019-12-18 14:25 | Emergency (ER) | payer OTHER ==
[2019-12-18 14:37] VITALS: BP 128/78; PULSE 75; RESP 18; TEMP 97.9
--- NOTE | 2019-12-18 15:03 | ED ---
Skin/Abscess/FB HPI - General Chief complaint: Skin/Abscess/Foreign Body Stated complaint: Abscess Time Seen by Provider: 12/18/19 14:38 Source: patient Mode of arrival: ambulatory Limitations: no limitations - History of Present Illness Initial comments: 24yo female history of previous presents emergency department today for chief complaint of lump near her . Patient states she noticed a tender lump just inferior to her scar. Patient states she has not noted this before. Patient does have history of herpes simplex but denies any active infection. Patient denies any nausea vomiting abdominal pain redness of the site fever or flulike symptoms. Patient has no other complaints. She states that this is the first day she ever noted it. Patient appears well arrival afebrile no signs acute distress. was performed 6 years ago. Patient denies any vaginal discharge or bleeding. - Related Data Home Medications Medication Instructions Recorded Confirmed Azithromycin [Zithromax Z-pack] See Taper PO DIRECTED 06/21/19 06/21/19 methylPREDNISolone Dose Pack See Taper PO DIRECTED 06/21/19 06/21/19 [Medrol Dose Pack] Allergies Allergy/AdvReac Type Severity Reaction Status Date / Time No Known Allergies Allergy Verified 06/30/19 17:45 Review of Systems ROS Statement: Those systems with pertinent positive or pertinent negative responses have been documented in the HPI. ROS Other: All systems not noted in ROS Statement are negative. Past Medical History Past Medical History: No Reported History History of Any Multi-Drug Resistant Organisms: None Reported Past Surgical History: Section Past Psychological History: No Psychological Hx Reported Smoking Status: Never smoker Past Alcohol Use History: None Reported, Occasional Past Drug Use History: None Reported General Exam - General Exam Comments Initial Comments: General: The patient is awake and alert, in no distress, and does not appear acutely ill. Eye: +3 mm pupils are equal, round and reactive to light, extra-ocular movements are intact. No nystagmus. There is normal conjunctiva bilaterally. No signs of icterus. Cardiovascular: There is a regular rate and rhythm. No murmur, rub or gallop is appreciated. Respiratory: Lungs are clear to auscultation, respirations are non-labored, breath sounds are equal. No wheezes, stridor, rales, or rhonchi. Gastrointestinal: Soft, non-distended, non-tender abdomen without masses or organomegaly noted. There is no rebound or guarding present. There is very small 1x1cm mobile area of tenderness, no overlying redness. No fluctuance appreciated. Midline just above the symphysis. No pain to palpation of groin, no abdominal LN palpable. Musculoskeletal: Normal ROM, no tenderness. Strength 5/5. Sensation intact. Radial pulses equal bilaterally 2+. Neurological: A&O x 3. CN II-XII intact grossly, There are no obvious motor or sensory deficits. Coordination appears grossly intact. Speech is normal. Skin: Skin is warm and dry and no rashes or lesions are noted. Psychiatric: Cooperative, appropriate mood & affect, normal judgment. Limitations: no limitations Course Vital Signs 12/18/19 14:33 Temperature 97.9 F Pulse Rate 75 Respiratory 18 Rate Blood Pressure 128/78 O2 Sat by Pulse 100 Oximetry Medical Decision Making - Medical Decision Making 24-year-old female presenting for lump on abdomen. There is a mobile 1 cm lump just distal to patient's scar superior to the pubis symphysis. There does not appear to be any superficial skin changes. No fluctuance. It is mobile not matted. At this time this does not appears to be an obvious infection, no fluctuance for indication of drainage. Although this is early on in disease process of symptoms began today I advised patient to monitor for in creasing size swelling redness pain if these occur to return immediately to the emergency department otherwise I recommended close primary care follow-up if this is persistent I recommend imaging studies such as ultrasound or CAT scan. Patient is agreeable to this care plan at discharge at this time return parameters were discussed at length I discussed the case maintained provider Dr. Moran in detail who is agreeable to this care plan discharge at this time. Disposition Clinical Impression: Lump of skin Disposition: HOME SELF-CARE Condition: Good Additional Instructions: Please use medication as discussed. Please follow-up with family doctor in the next 2 days. If symptom worsen return to the ER. Please return to emergency room if the symptoms increase or worsen or for any other concerns. Is patient prescribed a controlled substance at d/c from ED?: No Referrals: Albin Fabian DO [Primary Care Provider] - 1-2 days Time of Disposition: 15:02
== END 2019-12-18 15:09 | disposition home or self-care (01) ==
LOC: EC 14:25
DX: R19.00 Intra-abdominal and pelvic swelling, mass and lump, unspecified site (principal)
CPT/HCPCS: 99282

== ENCOUNTER 2019-12-23 09:26 | Emergency (ER) | payer OTHER ==
[2019-12-23 09:45] VITALS: RESP 16
--- NOTE | 2019-12-23 10:13 | ED ---
General Adult HPI - General Chief complaint: Recheck/Abnormal Lab/Rx Stated complaint: abd pain Time Seen by Provider: 12/23/19 10:02 Source: EMS Mode of arrival: EMS Limitations: no limitations - History of Present Illness Initial comments: Patient is 24-year-old female presenting to emergency Department with chief complaint of a cyst. Patient reports she was in the ED several days ago with the same chief complaint. Patient states it appears to be a mass in the midline pubic region inferior to her incision site. performed 8 y ears ago. Patient reports nothing has changed since her last ED visit. Patient states the mass is still present and painful at rest. Patient denies dysuria, dyspareunia, vaginal discharge, itching or fall small. Patient states she took a single dose of the medication today and is making her nauseated but no vomiting or diarrhea. Patient does report history of genital herpes that occurred last s um but otherwise no immediate infections. Patient denies any night sweats fevers or chills. She states went to her primary care yesterday who started her on doxycycline. Patient denies increased urgency or frequency or dysuria. Patient denies painful lymph nodes. She denies any concerns for an STI. - Related Data Home Medications Medication Instructions Recorded Confirmed Azithromycin [Zithromax Z-pack] See Taper PO DIRECTED 06/21/19 06/21/19 methylPREDNISolone Dose Pack See Taper PO DIRECTED 06/21/19 06/21/19 [Medrol Dose Pack] Allergies Allergy/AdvReac Type Severity Reaction Status Date / Time doxycycline AdvReac Nausea & Verified 12/23/19 09:47 Vomiting Review of Systems ROS Statement: Those systems with pertinent positive or pertinent negative responses have been documented in the HPI. ROS Other: All systems not noted in ROS Statement are negative. Past Medical History Past Medical History: No Reported History History of Any Multi-Drug Resistant Organisms: None Reported Past Surgical History: Section Past Psychological History: No Psychological Hx Reported Smoking Status: Never smoker Past Alcohol Use History: None Reported, Occasional Past Drug Use History: None Reported General Exam Limitations: no limitations General appearance: alert, in no apparent distress Head exam: Present: atraumatic, normocephalic, normal inspection Eye exam: Present: normal appearance, PERRL Pupils: Present: normal accommodation ENT exam: Present: normal exam, mucous membranes moist Neck exam: Present: normal inspection, full ROM Respiratory exam: Present: normal lung sounds bilaterally Cardiovascular Exam: Present: regular rate, normal rhythm, normal heart sounds External exam: Present: other (Tenderness with palpation at the site of the mass.). Absent: normal external exam (Mobile mass measuring approximately 1 cm inferior to her incision site and superior to the pubic symphysis. No skin changes. No swelling appreciated. No fluctuance. ), erythema, swelling, lesions, lacerations, ecchymosis Course Vital Signs 12/23/19 09:34 Temperature 98.1 F Pulse Rate 62 Respiratory 16 Rate Blood Pressure 114/62 O2 Sat by Pulse 98 Oximetry Medical Decision Making - Medical Decision Making Patient is 24-year-old female presenting to emergency Department with a chief complaint of a cyst. On exam patient is a multiple mass measuring approximately 1 cm superior to the pubic symphysis and inferior to the incision site of her l ast . It does not appear to be infectious with no skin discoloration or any swelling in the region. The cyst does appear to be tender. No palpable inguinal lymph nodes. UA is unremarkable. Patient is not . Ultrasound shows an 8 mm a cutaneous cyst that is avascular but not an abscess. Patient vised to follow-up with his surgeon. Strict return parameters were thoroughly discussed with patient was understanding and agreeable. Case discussed with physician. - Lab Data Lab Results 12/23/19 12/23/19 Range/Units 10:00 10:00 Urine Color Yellow Urine Appearance Clear (Clear) Urine pH 5.5 (5.0-8.0) Ur Specific [place] 1.026 (1.001-1.035) Urine Protein Trace H (Negative) Urine Glucose (UA) Negative (Negative) Urine Ketones Negative (Negative) Urine Blood Negative (Negative) Urine Nitrite Negative (Negative) Urine Bilirubin Negative (Negative) Urine Urobilinogen <2.0 (<2.0) mg/dL Ur Leukocyte Esterase Negative (Negative) Urine HCG, Qual Not Detected (Not Detectd) Disposition Clinical Impression: Subcutaneous cyst, Lump of skin Disposition: HOME SELF-CARE Condition: Stable Instructions (If sedation given, give patient instructions): Cyst (ED) Additional Instructions: Please follow up with a general surgeon. Return to emergency department if symptoms worsen. Is patient prescribed a controlled substance at d/c from ED?: No Referrals: Albin Fabian DO [Primary Care Provider] - 1-2 days Julien Jackson MD [Medical Doctor] - 1-2 days Time of Disposition: 11:26
[2019-12-23 11:10] LABS: Appearance,Urine Clear (Clear); Bilirubin,Urine Negative (Negative); Blood,Urine Negative (Negative); Color,Urine Yellow; Glucose,Urine (UA) Negative (Negative); Ketones,Urine Negative (Negative); Leukocyte Esterase,Urine Negative (Negative); Nitrite,Urine Negative (Negative); PH, Urine 5.5 (5.0-8.0); Protein,Urine Trace (Negative); Specific Gravity,Urine 1.026 (1.001-1.035); Urobilinogen,Urine <2.0 mg/dL (<2.0)
--- NOTE | 2019-12-23 11:10 | US ---
EXAMINATION TYPE: US pelvic limited DATE OF EXAM: 12/23/2019 COMPARISON: NONE CLINICAL HISTORY: pelvic mass. Palpable on midline lower pelvis / pubic symphysis. TECHNIQUE/FINDINGS: The palpable abnormality of the midline lower pelvis was imaged with grayscale an d color ultrasound. At the palpable abnormality there is a cystic appearing lesion visualized = 0.8 x 0.5 x 0.4 cm. There is no internal complexity. There is increased through transmission and no internal vascularity. This is subcutaneous located proximally 4 mm deep to the dermis. IMPRESSION: Avascular, superficial simple appearing 8 mm subcutaneous cyst. This does not appear as abscess.
[2019-12-23 11:48] VITALS: BP 111/65; PULSE 60; TEMP 98.2
== END 2019-12-23 11:48 | disposition home or self-care (01) ==
LOC: EC 09:26
DX: L72.8 Other follicular cysts of the skin and subcutaneous tissue (principal); Z88.1 Allergy status to other antibiotic agents; Z87.42 Personal history of other diseases of the female genital tract
CPT/HCPCS: 76857; 81003; 81025; 99285

== ENCOUNTER 2020-09-14 20:31 | Emergency (ER) | payer OTHER ==
[2020-09-14 20:42] VITALS: TEMP 97.8
[2020-09-14] MEDS ORDERED: FAMOTIDINE 20 MG TAB PO STA (21:16)
--- NOTE | 2020-09-14 21:16 | ED ---
General Adult HPI - General Chief complaint: Allergic Reaction Stated complaint: allergic reaction Time Seen by Provider: 09/14/20 20:33 Source: patient, EMS Mode of arrival: EMS - History of Present Illness Initial comments: 24-year-old female presents to emergency department via EMS with complaints of possible ALLERGIC reaction. Patient states she had a sudden onset of facial flushing, small hives across her face, and redness beneath her lower eyelids; her symptoms were also accompanied by one episode of abdominal cramping and diarrhea. She states she ate dinner around 6:00 this evening and her symptoms began at 1945. Denies any new foods or unusual exposures. States she is currently being treated for an ear infection and sinus infection with Zithromax and ofloxacin eardrops; she has completed 4 days of treatment. Denies any shortness of breath, chest tightness, tongue, lips or, mouth swelling. Denies any wheezing or difficulty breathing. Patient states she took 25 mg of Benadryl prior to calling EMS and reports improvement in symptoms. Patient denies any recent fever, chills, cough, chest pain, abdominal pain, nausea, vomiting, constipation, back pain, numbness, tingling, dizziness, weakness, hematuria, dysuria, urinary urgency, urinary frequency, headache, visual changes, or any other complaints. - Related Data Home Medications Medication Instructions Recorded Confirmed Azithromycin [Zithromax Z-pack] See Taper PO DIRECTED 06/21/19 09/14/20 methylPREDNISolone Dose Pack See Taper PO DIRECTED 06/21/19 09/14/20 [Medrol Dose Pack] Ofloxacin 0.3% Otic Soln [Floxin 10 drops BOTH EARS DAILY 09/14/20 09/14/20 0.3% Otic Soln] Previous Rx's Medication Instructions Recorded Famotidine [Pepcid] 20 mg PO DAILY #3 tablet 09/14/20 Allergies Allergy/AdvReac Type Severity Reaction Status Date / Time doxycycline AdvReac Nausea & Verified 09/14/20 21:37 Vomiting Review of Systems ROS Statement: Those systems with pertinent positive or pertinent negative responses have been documented in the HPI. ROS Other: All systems not noted in ROS Statement are negative. Past Medical History Past Medical History: No Reported History History of Any Multi-Drug Resistant Organisms: None Reported Past Surgical History: Section Additional Past Surgical History / Comment(s): class 2 Herpes Past Psychological History: No Psychological Hx Reported Smoking Status: Never smoker Past Alcohol Use History: None Reported, Occasional Past Drug Use History: None Reported General Exam General appearance: alert, in no apparent distress, other (Well-developed, well- nourished female in no acute distress. Initial temperature 97.8, pulse 71, respirations 19, blood pressure 109/72, pulse ox 98% on room air.) Expanded Head exam: Present: other (Frontal sinuses tender upon palpation) Expanded Ear exam: Present: normal external inspection TM/Canal exam: Erythema: Right TM (Small localized area of erythema at the 2 o'clock position on the right tympanic membrane) Teeth exam: Present: normal inspection Throat exam: normal inspection Respiratory exam: Present: normal lung sounds bilaterally. Absent: respiratory distress, wheezes, rales, rhonchi, stridor Cardiovascular Exam: Present: regular rate, normal rhythm, normal heart sounds. Absent: systolic murmur, diastolic murmur, rubs, gallop, clicks GI/Abdominal exam: Present: soft, normal bowel sounds. Absent: distended, tenderness, guarding, rebound, rigid Neurological exam: Present: alert, oriented X3, CN II-XII intact Psychiatric exam: Present: normal affect, normal mood Skin exam: Present: warm, dry, intact, normal color. Absent: rash, erythema Course Vital Signs 09/14/20 09/14/20 09/14/20 20:36 20:44 21:23 Temperature 97.8 F Pulse Rate 71 68 Respiratory 19 19 16 Rate Blood Pressure 109/72 99/77 O2 Sat by Pulse 98 98 Oximetry 09/14/20 21:46 Temperature 97.8 F Pulse Rate 68 Respiratory 16 Rate Blood Pressure 99/77 O2 Sat by Pulse 98 Oximetry Medical Decision Making - Medical Decision Making 24-year-old female presents to the emergency department with concerns for an allergic reaction. Patient states she developed facial flushing, small hives, and and marked erythema beneath her eyes around 7:45 PM this evening. Reports the symptoms were also accompanied by one episode of diarrhea and abdominal cramping. Patient states she is on day 4 of taking Zithromax for sinusitis and ofloxacin eardrops bilateral ear infection. Reports taking 25 mg of Benadryl prior to EMS's arrival which has nearly resolved her symptoms. Patient denies any difficulty breathing, tightness in her chest, oral swelling, or vocal changes. Plan of care was discussed with patient. She is agreeable to taking pepcid but refuses any type of steroid. Patient instructed to follow up with her primary care doctor in the next 1-2 days for a recheck. Also encouraged to continue taking medications prescribed to her to treat ongoing infections. Discussed possible reasons to return to the emergency department including, but not limited to, chest tightness, shortness of breath, difficulty breathing, or any type of oral swelling. Patient verbalizes understanding and agrees with this plan. Disposition Clinical Impression: Allergic reaction Disposition: HOME SELF-CARE Condition: Good Instructions (If sedation given, give patient instructions): General Allergic Reaction (ED) Additional Instructions: Follow-up with your family doctor for a recheck in the next 1-2 days. Continue taking medications as prescribed previously. Take Benadryl as needed for recurrent ALLERGIC symptoms. Return to the emergency department with any new, worsening, or concerning symptoms. Prescriptions: Famotidine [Pepcid] 20 mg PO DAILY #3 tablet Is patient prescribed a controlled substance at d/c from ED?: No Referrals: Nonstaff,Physician [REFERRING] - 1-2 days Time of Disposition: 21:32
[2020-09-14 21:26] VITALS: BP 99/77; PULSE 68; RESP 16
== END 2020-09-14 21:47 | disposition home or self-care (01) ==
LOC: EC 20:31
DX: T78.40XA Allergy, unspecified, initial encounter (principal); J32.9 Chronic sinusitis, unspecified; Z88.1 Allergy status to other antibiotic agents
CPT/HCPCS: 99283

== ENCOUNTER 2021-01-16 08:55 | Emergency (ER) | payer OTHER ==
[2021-01-16 09:02] VITALS: RESP 18; TEMP 98.5
[2021-01-16 10:03] LABS: Basophils % (A) 0 %; Eosinophils % (A) 1 %; HGB 13.2 gm/dL (11.4-16.0); Lymphocytes # (A) 1.9 k/uL (1.0-4.8); Lymphocytes % (A) 31 %; MCH 28.6 pg (25.0-35.0); MCHC 32.1 g/dL (31.0-37.0); MCV 89.1 fL (80.0-100.0); Mean Platelet Volume 6.6; Monocytes # (A) 0.2 k/uL (0-1.0); Monocytes % (A) 3 %; Neutrophils # (A) 3.8 k/uL (1.3-7.7); Neutrophils % (A) 63 %; Platelet Count 226 k/uL (150-450); RDW 12.1 % (11.5-15.5)
[2021-01-16 10:18] LABS: African American GFR (CKD) >90 (>60 ml/min/1.73 sqM); Anion Gap 8 mmol/L; Blood Urea Nitrogen 17 mg/dL (7-17); Calcium 9.4 mg/dL (8.4-10.2); Carbon Dioxide 25 mmol/L (22-30); Chloride 104 mmol/L (98-107); Glucose 97 mg/dL (74-99); Non-African American GFR(CKD) >90 (>60 ml/min/1.73 sqM); Potassium 4.9 mmol/L (3.5-5.1); Sodium 137 mmol/L (137-145)
--- NOTE | 2021-01-16 10:22 | ED ---
Abdominal Pain HPI - General Chief Complaint: Abdominal Pain Stated Complaint: blood in stool Time Seen by Provider: 01/16/21 09:04 Source: patient Mode of arrival: ambulatory Limitations: no limitations - History of Present Illness Initial Comments: 25-year-old feel presenting today for chief complaint of bleeding from rectum. Patient states that she straning to have a bowel movement she states that she had another bowel movement this morning and noticed bright red blood streaked on the toilet her. Patient denies defecating sure blood or noting any clots. Patient is unsure if she has any history of hemorrhoids. Patient denies vaginal bleeding she denies . She denies lightheadedness abdominal pain. She denies any dysuria urgency frequency. Patient denies any bleeding diathesis or anticoagulation use. Patient is no additional complaints upon arrival patient appears well nontoxic distress patient's heart rate is within normal limits. - Related Data Home Medications Medication Instructions Recorded Confirmed No Known Home Medications 01/16/21 01/16/21 Allergies Allergy/AdvReac Type Severity Reaction Status Date / Time doxycycline AdvReac Nausea & Verified 01/16/21 09:51 Vomiting Review of Systems ROS Statement: Those systems with pertinent positive or pertinent negative responses have been documented in the HPI. ROS Other: All systems not noted in ROS Statement are negative. Past Medical History Past Medical History: No Reported History History of Any Multi-Drug Resistant Organisms: None Reported Past Surgical History: Section Additional Past Surgical History / Comment(s): class 2 Herpes Past Psychological History: No Psychological Hx Reported Smoking Status: Never smoker Past Alcohol Use History: None Reported, Occasional Past Drug Use History: None Reported General Exam - General Exam Comments Initial Comments: General: The patient is awake and alert, in no distress Eye: Pupils are equal, round and reactive to light, extra-ocular movements are intact. No nystagmus. There is normal conjunctiva bilaterally. No signs of icterus. Ears, nose, mouth and throat: There are moist mucous membranes and no oral lesions. Neck: The neck is supple, there is no tenderness or JVD. Cardiovascular: There is a regular rate and rhythm. No murmur, rub or gallop is appreciated. Respiratory: Lungs are clear to auscultation, respirations are non-labored, breath sounds are equal. No wheezes, stridor, rales, or rhonchi. Gastrointestinal: Soft, non-distended, non-tender abdomen without masses or organomegaly noted. There is no rebound or guarding present. No CVA tenderness. Rectal: light brown stool Musculoskeletal: Normal ROM, no tenderness. Strength 5/5. Sensation intact. Radial pulses equal bilaterally 2+. Neurological: A&O x 3. CN II-XII intact grossly, There are no obvious motor or sensory deficits. Coordination appears grossly intact. Speech is normal. Skin: Skin is warm and dry and no rashes or lesions are noted. Psychiatric: Cooperative, appropriate mood & affect, normal judgment. Limitations: no limitations Course Vital Signs 01/16/21 01/16/21 01/16/21 08:56 10:01 10:46 Temperature 98.5 F 98.5 F Pulse Rate 71 66 Respiratory 18 18 18 Rate Blood Pressure 128/85 116/72 O2 Sat by Pulse 100 100 Oximetry Medical Decision Making - Medical Decision Making 25yo rectal bleeding. Hgb stable. bun/cr stable. no tachycardia or hypotension. No bright red blood per rectum. Patient case discussed with Dr. León at this time I feel patient is stbale for discharge with PCP and GI f/u and strict return paramters. patent gareeale to this care plan and discharge. - Lab Data Result diagrams: 01/16/21 09:58 01/16/21 09:58 Lab Results 01/16/21 01/16/21 01/16/21 Range/Units 09:58 09:58 10:00 WBC 6.0 (3.8-10.6) k/uL RBC 4.60 (3.80-5.40) m/uL Hgb 13.2 (11.4-16.0) gm/dL Hct 41.0 (34.0-46.0) % MCV 89.1 (80.0-100.0) fL MCH 28.6 (25.0-35.0) pg MCHC 32.1 (31.0-37.0) g/dL RDW 12.1 (11.5-15.5) % Plt Count 226 (150-450) k/uL MPV 6.6 Neutrophils % 63 % Lymphocytes % 31 % Monocytes % 3 % Eosinophils % 1 % Basophils % 0 % Neutrophils # 3.8 (1.3-7.7) k/uL Lymphocytes # 1.9 (1.0-4.8) k/uL Monocytes # 0.2 (0-1.0) k/uL Eosinophils # 0.0 (0-0.7) k/uL Basophils # 0.0 (0-0.2) k/uL Sodium 137 (137-145) mmol/L Potassium 4.9 (3.5-5.1) mmol/L Chloride 104 (98-107) mmol/L Carbon Dioxide 25 (22-30) mmol/L Anion Gap 8 mmol/L BUN 17 (7-17) mg/dL Creatinine 0.68 (0.52-1.04) mg/dL Est GFR (CKD-EPI)AfAm >90 (>60 ml/min/1.73 sqM) Est GFR (CKD-EPI)NonAf >90 (>60 ml/min/1.73 sqM) Glucose 97 (74-99) mg/dL Calcium 9.4 (8.4-10.2) mg/dL Stool Occult Blood Positive H (Negative) Disposition Clinical Impression: Blood in stool Disposition: HOME SELF-CARE Condition: Good Instructions (If sedation given, give patient instructions): Hemorrhoids (ED), Rectal Bleeding (ED) Additional Instructions: Please use medication as discussed. Please follow-up with family doctor in the next 2 days, recommend GI follow-up with Dr Stewart. Please return to emergency room if the symptoms increase or worsen or for any other concerns. Is patient prescribed a controlled substance at d/c from ED?: No Referrals: Nonstaff,Physician [Primary Care Provider] - 1-2 days Bo Padron MD [STAFF PHYSICIAN] - 1-2 days Time of Disposition: 10:22
[2021-01-16 10:47] VITALS: BP 116/72; PULSE 66
== END 2021-01-16 10:47 | disposition home or self-care (01) ==
LOC: EC 08:55
DX: K92.1 Melena (principal); Z88.1 Allergy status to other antibiotic agents
CPT/HCPCS: 36415; 80048; 82272; 85025; 99284